=== PATIENT | female | born 1955 | race Caucasian/White ===

== ENCOUNTER → 2023-05-26 07:44 | Outpatient (REF) | payer MEDICARE, BC, SELFPAY ==
[2023-05-26 08:56] LABS: % Basophils 1.3 % (0-2); % Eosinophils 9.6 % (0-6); % Immature Granulocytes 0.3 % (0-0.5); % Lymphocytes 24.7 % (20.5-51.1); % Monocytes 7.9 % (1.7-9.3); % Neutrophils 56.2 % (42.2-75.2); Absolute Basophils 0.1 10^3/uL (0-0.2); Absolute Eosinophils 0.6 10^3/uL (0-0.7); Absolute Lymphocytes 1.7 10^3/uL (1.2-3.4); Absolute Monocytes 0.5 10^3/uL (0.1-0.6); Absolute Neutrophils 3.8 10^3/uL (1.4-6.5); Hematocrit 38.3 % (37.0-47.0); Hemoglobin 13.5 g/dL (12.0-16.0); Mean Corp Hgb Conc. 35.2 g/dL (33.0-37.0); Mean Corpuscular Hgb 31.8 pg (27.0-31.0); Mean Corpuscular Volume 90.3 fL (81.0-99.0); Mean Platelet Volume 9.5 fL (7.4-10.4); Nucleated Red Blood Cells % 0 %; Platelet Count 329 10^3/uL (130-400); Red Blood Cell Count 4.24 10^6/uL (4.20-5.40); Red Cell Dist. Width 11.7 % (11.5-14.5); White Blood Cell Count 6.7 10^3/uL (4.8-10.8)
[2023-05-26 09:03] LABS: ALT (SGPT) 22 U/L (0-35); AST (SGOT) 28 U/L (14-36); Albumin 4.8 g/dl (3.5-5.0); Alkaline Phosphatase 82 U/L (38-126); Blood Urea Nitrogen 18 mg/dl (7-17); Calcium 10.2 mg/dl (8.4-10.2); Carbon Dioxide 30 mmol/L (22-30); Chloride 101 mmol/L (98-107); Glucose 96 mg/dl (70-99); HDL Cholesterol 59 mg/dl; LDL Cholesterol, Calculated 83 mg/dl; Potassium 4.5 mmol/L (3.5-5.1); Sodium 137 mmol/L (135-145); Total Bilirubin 0.7 mg/dl (0.2-1.3); Total Cholesterol 173 mg/dl (50-199); Total Protein 7.7 g/dl (6.3-8.2); Triglyceride 155 mg/dl (10-149); Very Low Density Lipoprotein 31 mg/dl (0-30); eGFR > 60.00
[2023-05-26 09:07] LABS: Erythrocyte Sed Rate 8 mm/hour (0-20)
[2023-05-26 09:30] LABS: C-Reactive Protein < 5.00 mg/L (0.0-10.00)
[2023-05-26 10:00] LABS: TSH 0.29 uIU/ml (0.47-4.68)
[2023-05-26 12:47] LABS: Glycohemoglobin (HgbA1c) 5.9 % (4.0-5.6)
[2023-05-29 01:55] LABS: SSA 52 (Ro)(ENA) Ab, IgG 3 AU/mL (0-40); SSA 60 (Ro)(ENA) Ab, IgG 1 AU/mL (0-40); SSB (La)(ENA) Ab, IgG 0 AU/mL (0-40)
== END ==
LOC: RAD 07:44
PROVIDERS: ATTENDING PHYSICIAN Family Medicine
DX: R10.30 Lower abdominal pain, unspecified (principal); R14.0 Abdominal distension (gaseous); R73.03 Prediabetes; I10 Essential (primary) hypertension; E78.2 Mixed hyperlipidemia
CPT/HCPCS: 36415; 76700; 80053; 80061; 83036; 84443; 85025; 85652; 86140; 86235

== ENCOUNTER → 2023-06-19 07:06 | Outpatient (REF) | payer MEDICARE, BC, SELFPAY | LOC: WDC 07:06 | PROVIDERS: ATTENDING PHYSICIAN Family Medicine | DX: Z12.31 Encounter for screening mammogram for malignant neoplasm of breast (principal) | CPT/HCPCS: 77063; 77067 ==

== ENCOUNTER → 2023-08-08 10:08 | Outpatient (REF) | payer MEDICARE, BC, SELFPAY ==
[2023-08-08 12:28] LABS: Free T4 1.27 ng/dl (0.78-2.19)
[2023-08-08 12:42] LABS: TSH 1.31 uIU/ml (0.47-4.68)
== END ==
LOC: HWLAB 10:08
PROVIDERS: ATTENDING PHYSICIAN Family Medicine
DX: E03.9 Hypothyroidism, unspecified (principal)
CPT/HCPCS: 36415; 84439; 84443

== ENCOUNTER → 2024-12-03 10:07 | Outpatient (REF) | payer MEDICARE, BC, SELFPAY | LOC: RAD 10:07 | PROVIDERS: ATTENDING PHYSICIAN Family Medicine | DX: Z78.0 Asymptomatic menopausal state (principal) | CPT/HCPCS: 77080 ==

== ENCOUNTER 2024-12-28 10:03 | Emergency (ER) | payer MEDICARE, BC, SELFPAY ==
[2024-12-28 10:08] VITALS: BP 185/92
[2024-12-28 10:35] VITALS: BP 154/73
[2024-12-28 10:36] VITALS: BMI 26.6
--- NOTE | 2024-12-28 10:56 | ED.GENMED ---
History of Present Illness
General
Chief Complaint: Heart Rate Problem
Source: patient
Exam Limitations: none
Time Seen by Provider: 12/28/24 10:36
Nursing documentation reviewed up to this point in time: agreed with
History of Present Illness
History of Present Illness:
69 yr old female with past medical history of hypertension presents to the ER for evaluation. For about 1 year she has had intermittent episodes of a' whooshing/pulsating' sensation that wakes her up in the middle of the night. It has been
occurring more frequently. She saw her family doctor for this on Friday he did increase her blood pressure medicine from 25 mg metoprolol to 50 mg daily. Over the weekend however she reports it happened almost constantly where she could not sleep
throughout the night. This morning the episode occurred around 9 AM which prompted her to come to the ER. She has never had an episode during the day. She has no associated headache with this. This morning she did feel the sensation that her
heart was pounding and she got very flushed. She denies any dizziness/vertigo sensation with it.
Past History
Past History
ED Past Medical History: GERD, HTN, Hypothyroidism and Other (UTI)
ED Past Surgical History: Appendectomy, Gynecological (Hysterectomy) and Other (thyroid ablation for Graves disease, hernia repair, Breast reduction)
Social History
Tobacco: Non-smoker
Alcohol: Occasional
Personal:
Living: with family
Phy Exam
General Physical Exam
General Presentation: no apparent distress
General age: appears stated age
General Skin: warm and dry
General Habitus: normal
General Mental: alert
General Hydration: appears well hydrated
ENT Exam
ENT Exam: EOMI, TM's normal (TM intact no cerumen impaction) and neck supple
Cardiovascular Exam
Cardiovascular Exam: regular rate/rhythm, no murmur and normal peripheral pulses
Pulmonary Exam
Pulmonary Exam: lungs clear and no respiratory distress
Neurological Exam
Neurological Exam: alert and oriented x3
Musculoskeletal Exam
Musculoskeletal Exam: full ROM
Skin Exam
Skin Exam: normal color and warm/dry
Psychiatric Exam
Psychiatric Exam: normal mood/affect
Course
Orders/Labs/Results
Orders:
Orders
12/28/24 10:12
Electrocardiogram (*1) Urgent
Reason for Study: Chest Pain
EKG- Treatment ONCE
12/28/24 10:48
CMP [Comprehensive Metabolic Panel] Urgent
Complete Blood Count/With Diff Urgent
Magnesium Urgent
TSH Reflex To Free T4 Urgent
12/28/24 11:17
CT Head & Neck Angio W/wo IV Urgent
Comment:
Reason For Exam: tinnutis /pulsating sensation
12/28/24 11:18
0.9% Sodium Chloride 500 ml [Nss] 500 ml IV BOLUS
Abnormal Lab Results
12/28/24
10:48
Absolute Monos (auto) 0.7 H 10^3/uL
(0.1-0.6)
Lymphocytes % 17.3 L %
(20.5-51.1)
Sodium 134 L mmol/L
(135-145)
Glucose 127 H mg/dl
(70-99)
Total Protein 8.5 H g/dl
(6.3-8.2)
12/28/24 10:48
12/28/24 10:48
Vital Signs
Initial and Last Documented VS:
Initial Vital Signs
Temp Pulse Resp BP Pulse Ox
97.9 F 94 20 185/92 99
12/28/24 10:08 12/28/24 10:08 12/28/24 10:08 12/28/24 10:08 12/28/24 10:08
Last Documented Vital Signs
Temp Pulse Resp BP Pulse Ox
97.9 F 78 12 155/62 99
12/28/24 10:08 12/28/24 14:45 12/28/24 14:45 12/28/24 14:17 12/28/24 11:41
[employer]ile [employer] Developer consulted with Physician
Agile [employer] Developer consulted with physician?: Yes
Name of Physician Consulted: Carmen
MDM/Problems Addressed
Differential Diagnosis Includes:
Not limited to tinnitus hypertension dehydration palpitations less likely carotid dissection
MDM/Problems Addressed:
As documented patient is a 69-year-old female who presented for a' whoosing ' sensation in her ears mostly at nighttime that wakes her up for about a year worse over the weekend. She has felt flushed and had some heart racing sensation. She was
seen by her family doctor for this and had a blood pressure medication increase. She presents here awake alert no acute distress she denies any recent fever chills trauma. She is afebrile her blood pressure is elevated her labs are remarkable CTA
head and neck done and unremarkable for acute findings. I did give patient a copy of her report as an nonemergent ultrasound of her carotid arteries is recommended. She is stable for discharge home case reviewed ED physician will discharge with
continued followed by family doctor for management of blood pressure and continued evaluation for symptoms as well as possibly ENT. Patient also had minimal complaints of palpitations no symptoms here she has seen Dr. Chirag Piña in the past will
refer to cardiology as well.
*Radiology
Radiology exam reviewed: radiology read reviewed
*Pulse Oximetry
SaO2: 100
Oxygen Mode of Delivery: Room air
Patient hypoxic: no
*EKG
Interpreted by ED Provider?: Yes
Comparison EKG: no changes
Heart Rate: 93
Rate: normal
Rhythm: sinus
Ischemia: non-specific ST changes
*Critical Care Note
Total Time (30-74mins, 75-104mins- exclusive of procedures): Not Applicable
ED Attending Note
-
Portions of this chart may have been created with voice recognition software.� Occasional wrong word or��sound alike� substitutions may have occurred due to the inherent limitations of voice recognition software.
Discharge Plan
Departure
Patient Disposition: Home (Routine Discharge)
Date of Disposition: 12/28/24
Time of Disposition: 14:37
Patient with high blood pressure during this ER visit?: Yes
Condition: Fair
Covid-19: Not Applicable
Discharge Problem:
Tinnitus, palptitations
Instructions: Palpitations (DC), BLOOD PRESSURE
Prescriptions:
No Action
Amlodipine Besylate
10 mg PO DAILY
Vitamin D3
1 tab PO DAILY
valsartan 320 mg Tablet
320 mg PO DAILY
metoprolol succinate 25 mg Tablet Extended Release 24 Hr
50 mg PO DAILY
estradiol 0.01 % (0.1 mg/gram) Cream
1 g VAGINAL QMWF
Rx Instructions:
3x per week
esomeprazole magnesium [Nexium] 20 mg Capsule,Delayed Release(Dr/Ec)
20 mg PO DAILY
rosuvastatin 5 mg Tablet
5 mg PO DAILY
Lumigan 0.01 % Drops
1 drp OPHTHALMIC (EYE) DAILY
Rx Instructions:
both eyes
levothyroxine 75 mcg Tablet
75 mcg PO Q6D
Referrals:
Obey Romo MD [Family Provider, Family Practice]
Ramsey Chan DO [Active, ENT]
Chirag Piña MD [Active, Cardiology]
Activity Restrictions/Additional Instructions:
As discussed please continue to follow-up with your family doctor for further evaluation of your symptoms. It is recommended that you have an ultrasound of her carotid arteries based on your CAT scan report please review this with your family
doctor. In addition please follow-up with cardiology for palpitations and ENT for possible tendinitis. Return if any worsening of symptoms.
Interventions
Interventions:
*Risk Screen - Suicide Last Done: 12/28/24 10:08
*General Assessment Last Done: 12/28/24 10:08
*Neglect/Abuse Screening Last Done: 12/28/24 10:08
*ED- Fall Risk Assessment Last Done: 12/28/24 10:36
*ED COVID-19 Vaccine History Last Done: 12/28/24 10:36
*ED Influenza Vaccine History Last Done: 12/28/24 10:36
*Nursing Disposition Last Done: 12/28/24 14:56
ED- Cardiac Assessment Last Done: 12/28/24 10:36
ED- Pulmonary Assessment Last Done: 12/28/24 10:36
Discharge Date and Time
Discharge Date/Time: 12/28/24 15:00
Print Language: GREEK
[2024-12-28 10:58] LABS: Hematocrit 40.8 % (37.0-47.0); Hemoglobin 13.5 g/dL (12.0-16.0); Mean Corp Hgb Conc. 33.1 g/dL (33.0-37.0); Mean Corpuscular Volume 92.1 fL (81.0-99.0); Nucleated Red Blood Cells % 0 %; Platelet Count 345 10^3/uL (130-400); Red Cell Dist. Width 11.8 % (11.5-14.5)
[2024-12-28 11:00] VITALS: BP 184/86
[2024-12-28 11:10] LABS: ALT (SGPT) 23 U/L (0-35); AST (SGOT) 26 U/L (14-36); Albumin 5.0 g/dl (3.5-5.0); Alkaline Phosphatase 80 U/L (38-126); Blood Urea Nitrogen 12 mg/dl (7-17); Calcium 9.9 mg/dl (8.4-10.2); Carbon Dioxide 26 mmol/L (22-30); Chloride 100 mmol/L (98-107); Estimated Creatinine Clearance 73 ml/min; Glucose 127 mg/dl (70-99); Magnesium 1.9 mg/dl (1.6-2.3); Potassium 3.9 mmol/L (3.5-5.1); Sodium 134 mmol/L (135-145); Total Protein 8.5 g/dl (6.3-8.2); eGFR > 60.00
[2024-12-28] MEDS: NSS 500 IV (11:22)
[2024-12-28 14:17] VITALS: BP 155/62
== END 2024-12-28 15:00 | disposition home or self-care (01) ==
LOC: EMR 10:03
PROVIDERS: EMERGENCY PHYSICIAN Emergency Medicine; FAMILY PHYSICIAN Family Medicine
DX: H93.A9 Pulsatile tinnitus, unspecified ear (principal); R00.2 Palpitations; I10 Essential (primary) hypertension; E03.9 Hypothyroidism, unspecified; K21.9 Gastro-esophageal reflux disease without esophagitis; Z79.899 Other long term (current) drug therapy; Z87.440 Personal history of urinary (tract) infections; Z90.49 Acquired absence of other specified parts of digestive tract; Z90.710 Acquired absence of both cervix and uterus
CPT/HCPCS: 99284; 96360; 70496; 70498; 80053; 83735; 84443; 85025; 93005; Q9967

== ENCOUNTER → 2025-01-14 06:47 | Outpatient (REF) | payer MEDICARE, BC, SELFPAY | LOC: WDC 06:47 | PROVIDERS: ATTENDING PHYSICIAN Family Medicine | DX: Z12.31 Encounter for screening mammogram for malignant neoplasm of breast (principal) | CPT/HCPCS: 77063; 77067 ==

== ENCOUNTER → 2025-01-17 06:18 | Outpatient (REF) | payer MEDICARE, BC, SELFPAY | LOC: RAD 06:18 | PROVIDERS: ATTENDING PHYSICIAN Family Medicine | DX: I65.23 Occlusion and stenosis of bilateral carotid arteries (principal) | CPT/HCPCS: 93880 ==